=== PATIENT | male | born 1980 | race Caucasian/White ===

== ENCOUNTER 2017-03-21 18:01 | Observation (INO) | payer OTHER ==
[~2017-03-21] VITALS: Ht 177.8 cm; Wt 90.0 kg
[~2017-03-21 18:01] MED LIST: PRIL20CA PO
[2017-03-21] MEDS ORDERED: IOHEXOL 350 MG/ML 10 ML VIAL (for RAD DIAG) IVCONTRAST ONE (18:02)
[2017-03-21 18:03] VITALS: BP 174/96; PULSE 104; RESP 12; TEMP 98.6; O2SAT 99
[2017-03-21] MEDS ORDERED: PRIL20TA2 (18:15)
[2017-03-21] MEDS ORDERED: SODIUM CHLOR 0.9% 1000 ML INJ 1,000 ML IV SCH (18:16)
--- NOTE | 2017-03-21 18:28 | PD ---
HPI Chief Complaint: Abdominal Pain Time Seen by Provider: 18:10 Travel History International Travel<30 days: No Contact w/Intl Traveler<30days: No Traveled to known affect area: No History of Present Illness HPI 36 year old male presents to the emergency department for evaluation of right lower quadrant pain that started approximately 5 hours ago. He also vomited 1. Patient reports history of AR, spontaneous coronary dissection, GERD. He is currently on omeprazole. Patient denies any fevers or chills. No chest pain or shortness of breath. He denies any previous abdominal surgeries. Patient denies any diarrhea or constipation. No blood in the stool. [facility] Social History Alcohol Use: Yes (3 X/WEEK) Tobacco Use: No Substance Use: No Allergies-Medications (Allergen,Severity, Reaction): Coded Allergies: meperidine (Verified Allergy, Severe, Hives, 03/21/17) Reported Meds & Prescriptions Reported Meds & Active Scripts Active Reported Prilosec (Omeprazole Magnesium) 20 Mg Tab 40 Review of Systems Except as stated in HPI: all other systems reviewed are Neg Physical Exam Narrative GENERAL: Well-nourished, well-developed male patient, ambulatory. Afebrile. SKIN: Focused skin assessment warm/dry. HEAD: Normocephalic. Atraumatic. EYES: No scleral icterus. No injection or drainage. NECK: Supple, trachea midline. No JVD or lymphadenopathy. CARDIOVASCULAR: Regular rate and rhythm without murmurs, gallops, or rubs. RESPIRATORY: Breath sounds equal bilaterally. No accessory muscle use. Lungs sounds are clear to auscultation GASTROINTESTINAL: Abdomen soft and nondistended. He has tenderness over McBurney's point and has a positive Rovsing sign. MUSCULOSKELETAL: No cyanosis, or edema. BACK: Nontender without obvious deformity. No CVA tenderness. Data Data Last Documented VS Vital Signs Date Time Temp Pulse Resp B/P (MAP) Pulse Ox O2 Delivery O2 Flow Rate FiO2 03/21/17 22:17 78 19 140/63 (88) 94 Room Air 03/21/17 18:03 98.6 Orders Orders Complete Blood Count With Diff (03/21/17 18:16) Comprehensive Metabolic Panel (03/21/17 18:16) Lipase (03/21/17 18:16) Prothrombin Time / Inr (Pt) (03/21/17 18:16) Act Partial Throm Time (Ptt) (03/21/17 18:16) Urinalysis - C+S If Indicated (03/21/17 18:16) Ct Abd/Pel W Iv Contrast(Rout) (03/21/17 18:16) Iv Access Insert/Monitor (03/21/17 18:16) Ecg Monitoring (03/21/17 18:16) Oximetry (03/21/17 18:16) Morphine Inj (Morphine Inj) (03/21/17 18:30) Ondansetron Inj (Zofran Inj) (03/21/17 18:30) Sodium Chlor 0.9% 1000 Ml Inj (Ns 1000 M (03/21/17 18:16) Sodium Chloride 0.9% Flush (Ns Flush) (03/21/17 18:30) Iohexol 350 Inj (Omnipaque 350 Inj) (03/21/17 18:02) Labs Laboratory Tests Test 03/21/17 18:00 03/21/17 18:20 03/21/17 20:00 White Blood Count 15.6 TH/MM3 Red Blood Count 5.41 MIL/MM3 Hemoglobin 16.6 GM/DL Hematocrit 49.3 % Mean Corpuscular Volume 91.2 FL Mean Corpuscular Hemoglobin 30.7 PG Mean Corpuscular Hemoglobin Concent 33.6 % Red Cell Distribution Width 13.2 % Platelet Count 272 TH/MM3 Mean Platelet Volume 8.4 FL Neutrophils (%) (Auto) 78.8 % Lymphocytes (%) (Auto) 10.9 % Monocytes (%) (Auto) 8.9 % Eosinophils (%) (Auto) 0.7 % Basophils (%) (Auto) 0.7 % Neutrophils # (Auto) 12.3 TH/MM3 Lymphocytes # (Auto) 1.7 TH/MM3 Monocytes # (Auto) 1.4 TH/MM3 Eosinophils # (Auto) 0.1 TH/MM3 Basophils # (Auto) 0.1 TH/MM3 CBC Comment DIFF FINAL Differential Comment Prothrombin Time 10.4 SEC Prothromb Time International Ratio 0.9 RATIO Activated Partial Thromboplast Time 38.4 SEC Blood Urea Nitrogen 18 MG/DL Creatinine 1.17 MG/DL Random Glucose 101 MG/DL Total Protein 8.2 GM/DL Albumin 4.3 GM/DL Calcium Level 9.4 MG/DL Alkaline Phosphatase 82 U/L Aspartate Amino Transf (AST/SGOT) 37 U/L Alanine Aminotransferase (ALT/SGPT) 71 U/L Total Bilirubin 0.5 MG/DL Sodium Level 138 MEQ/L Potassium Level 4.1 MEQ/L Chloride Level 102 MEQ/L Carbon Dioxide Level 25.9 MEQ/L Anion Gap 10 MEQ/L Estimat Glomerular Filtration Rate 71 ML/MIN Lipase 208 U/L Urine Color YELLOW Urine Turbidity CLEAR Urine pH 5.5 Urine Specific [place] 1.020 Urine Protein NEG mg/dL Urine Glucose (UA) NEG mg/dL Urine Ketones NEG mg/dL Urine Occult Blood NEG Urine Nitrite NEG Urine Bilirubin NEG Urine Urobilinogen LESS THAN 2.0 MG/DL Urine Leukocyte Esterase NEG Urine RBC 1 /hpf Urine WBC 1 /hpf Microscopic Urinalysis Comment CULT NOT INDICATED MDM Medical Decision Making Medical Screen Exam Complete: Yes Emergency Medical Condition: Yes Medical Record Reviewed: Yes Interpretation(s) Last Impressions Abdomen/Pelvis CT 03/21/17 1816 Signed Impressions: Service Date/Time: Sunday, March 21, 2017 20:58 - CONCLUSION: 1. Very minimal induration of the fat at the peritoneal reflection in the right lower quadrant. This appears slightly superior to the appendix. The appendix does not appear thickened. Induration may be secondary to mild inflammation without significant thickening of the appendix. This can be correlated clinically with any signs of subtle mild appendicitis. 2. Hepatic steatosis. William Blanco MD Differential Diagnosis Appendicitis versus diverticulitis versus mesenteric adenitis versus pancreatitis Narrative Course 36-year-old male presents to the emergency department for evaluation of right lower quadrant abdominal pain that started 5 hours ago. He has tenderness over McBurney's point and a positive Rovsing sign. CBC, CMP, lipase, PTT, PT/INR, UA are ordered and pending. CT abdomen/pelvis with IV contrast is ordered and pending. CBC shows leukocytosis 15.6. CMP is unremarkable. Lipase is 208. Coags show no acute abnormality. UA is negative. CT abdomen/pelvis shows very minimal induration of the fat at the peritoneal reflection in the right lower quadrant. This appears slightly superior to the appendix. The appendix does not appear thickened. Induration may be secondary to mild inflammation without significant thickening of the appendix. This can be correlated clinically with any signs of subtle mild appendicitis; 2. Hepatic steatosis. Patient states he last ate around 1 PM today. He also had a glass of water around 4 PM. I talked to Dr. Lynch, surgeon, who will review the CT scan and see the patient. My attending physician, Dr. Russo, will resume care and disposition of patient. Neela Ortiz Mar 21, 2017 18:28
[2017-03-21] MEDS ORDERED: MORPHINE SULFATE 4 MG/ML INJ IV PUSH ONE (18:30)
[2017-03-21] MEDS ORDERED: ONDANSETRON HCL 4 MG/2 ML VIAL IVP ONE (18:30)
[2017-03-21] MEDS ORDERED: SODIUM CHLORIDE 0.9% FLUSH 10 ML FLUSH IV FLUSH PRN (18:30)
[2017-03-21 18:32] VITALS: O2SAT 99
[2017-03-21 18:48] LABS: AUTOMATED NEUTROPHIL # 12.3 TH/MM3 (1.8-7.7); BASOPHIL # 0.1 TH/MM3 (0-0.2); BASOPHIL % 0.7 % (0.0-2.0); EOSINOPHIL # 0.1 TH/MM3 (0-0.4); EOSINOPHIL % 0.7 % (0.0-4.0); HEMATOCRIT 49.3 % (39.0-51.0); HEMO FLAGS DIFF FINAL; LYMPH % 10.9 % (9.0-44.0); LYMPHOCYTE # 1.7 TH/MM3 (1.0-4.8); MEAN CELL VOLUME 91.2 FL (80.0-100.0); MEAN CORPUSCULAR HEMOGLOBIN 30.7 PG (27.0-34.0); MEAN CORPUSCULAR HGB CONC 33.6 % (32.0-36.0); MONO % 8.9 % (0.0-8.0); NEUT % 78.8 % (16.0-70.0); PLATELET COUNT 272 TH/MM3 (150-450); RED BLOOD COUNT 5.41 MIL/MM3 (4.50-5.90); RED CELL DISTRIBUTION WIDTH 13.2 % (11.6-17.2); WHITE BLOOD COUNT 15.6 TH/MM3 (4.0-11.0)
[2017-03-21 18:59] LABS: APTT (PATIENT) 38.4 SEC (24.3-30.1); INTERNATIONAL NORMALIZED RATIO 0.9 RATIO; PROTHROMBIN TIME - PATIENT 10.4 SEC (9.8-11.6)
[2017-03-21 19:05] LABS: ALT (GPT) 71 U/L (12-78)
[2017-03-21 19:08] LABS: ALKALINE PHOSPHATASE 82 U/L (45-117); TOTAL BILIRUBIN ADULT 0.5 MG/DL (0.2-1.0)
[2017-03-21 19:19] LABS: ANION GAP 10 MEQ/L (5-15); AST (GOT) 37 U/L (15-37); BICARBONATE 25.9 MEQ/L (21.0-32.0); BLOOD UREA NITROGEN 18 MG/DL (7-18); CHLORIDE 102 MEQ/L (98-107); GLOMERULAR FILTRATION RATE 71 ML/MIN (>89); POTASSIUM 4.1 MEQ/L (3.5-5.1); SODIUM (NA) 138 MEQ/L (136-145)
--- NOTE | 2017-03-21 20:07 | PD ---
Physical Exam Narrative I, Dr. Russo, have reviewed the advance practice practitioner's documentation and am in agreement, met with the patient face to face, made the diagnosis, and the medical decision making was done by me. *My assessment and Findings: Acute appendicitis vs. nephrolithiasis vs. cystitis vs. colitis 36yo M with PMH of [place], GERD, here with right lower abdominal pain that started around 1pm today. Associated with some nausea and one episode of NBNB vomiting. Pain is pressure and sharp, mainly in right lower quadrant and at times go to suprapubic. Denies any fever, chest pain, sob, dysuria, hematuria, testicular pain. Pt given morphine and zofran and pain has improved. Labs reviewed, leukocytosis at 15.6. CMP unremarkable. Lipase normal. Prolonged PTT. UA negative. CTa/p showed minimal induration superior to the appendix, appendix is not thickened but this can be correlated clinically with any signs of subtle mild appendicitis. Clinically, pt's pain is localized in right lower abdomen concerning for appendicitis so Dr. Lynch from general surgery was called. He evaluated the patient in the ED and recommended NPO after midnight and admit to medicine for observation. Discussed with [facility] hospitalist Dr. Pierre and accepted to Dr. De Santiago's service. Zosyn was cancelled because Dr. Lynch did not want any antibiotics. Data Data Last Documented VS Vital Signs Date Time Temp Pulse Resp B/P (MAP) Pulse Ox O2 Delivery O2 Flow Rate FiO2 03/21/17 22:17 78 19 140/63 (88) 94 Room Air 03/21/17 18:03 98.6 Orders Orders Complete Blood Count With Diff (03/21/17 18:16) Comprehensive Metabolic Panel (03/21/17 18:16) Lipase (03/21/17 18:16) Prothrombin Time / Inr (Pt) (03/21/17 18:16) Act Partial Throm Time (Ptt) (03/21/17 18:16) Urinalysis - C+S If Indicated (03/21/17 18:16) Ct Abd/Pel W Iv Contrast(Rout) (03/21/17 18:16) Iv Access Insert/Monitor (03/21/17 18:16) Ecg Monitoring (03/21/17 18:16) Oximetry (03/21/17 18:16) Morphine Inj (Morphine Inj) (03/21/17 18:30) Ondansetron Inj (Zofran Inj) (03/21/17 18:30) Sodium Chlor 0.9% 1000 Ml Inj (Ns 1000 M (03/21/17 18:16) Sodium Chloride 0.9% Flush (Ns Flush) (03/21/17 18:30) Iohexol 350 Inj (Omnipaque 350 Inj) (03/21/17 18:02) Piperacil-Tazo 3.375 Gm Premix (Zosyn 3. (03/21/17 23:15) Consult General Surgery (03/21/17 ) Admit Order (Ed Use Only) (03/21/17 23:10) Labs Laboratory Tests Test 03/21/17 18:00 03/21/17 18:20 03/21/17 20:00 White Blood Count 15.6 TH/MM3 Red Blood Count 5.41 MIL/MM3 Hemoglobin 16.6 GM/DL Hematocrit 49.3 % Mean Corpuscular Volume 91.2 FL Mean Corpuscular Hemoglobin 30.7 PG Mean Corpuscular Hemoglobin Concent 33.6 % Red Cell Distribution Width 13.2 % Platelet Count 272 TH/MM3 Mean Platelet Volume 8.4 FL Neutrophils (%) (Auto) 78.8 % Lymphocytes (%) (Auto) 10.9 % Monocytes (%) (Auto) 8.9 % Eosinophils (%) (Auto) 0.7 % Basophils (%) (Auto) 0.7 % Neutrophils # (Auto) 12.3 TH/MM3 Lymphocytes # (Auto) 1.7 TH/MM3 Monocytes # (Auto) 1.4 TH/MM3 Eosinophils # (Auto) 0.1 TH/MM3 Basophils # (Auto) 0.1 TH/MM3 CBC Comment DIFF FINAL Differential Comment Prothrombin Time 10.4 SEC Prothromb Time International Ratio 0.9 RATIO Activated Partial Thromboplast Time 38.4 SEC Blood Urea Nitrogen 18 MG/DL Creatinine 1.17 MG/DL Random Glucose 101 MG/DL Total Protein 8.2 GM/DL Albumin 4.3 GM/DL Calcium Level 9.4 MG/DL Alkaline Phosphatase 82 U/L Aspartate Amino Transf (AST/SGOT) 37 U/L Alanine Aminotransferase (ALT/SGPT) 71 U/L Total Bilirubin 0.5 MG/DL Sodium Level 138 MEQ/L Potassium Level 4.1 MEQ/L Chloride Level 102 MEQ/L Carbon Dioxide Level 25.9 MEQ/L Anion Gap 10 MEQ/L Estimat Glomerular Filtration Rate 71 ML/MIN Lipase 208 U/L Urine Color YELLOW Urine Turbidity CLEAR Urine pH 5.5 Urine Specific [place] 1.020 Urine Protein NEG mg/dL Urine Glucose (UA) NEG mg/dL Urine Ketones NEG mg/dL Urine Occult Blood NEG Urine Nitrite NEG Urine Bilirubin NEG Urine Urobilinogen LESS THAN 2.0 MG/DL Urine Leukocyte Esterase NEG Urine RBC 1 /hpf Urine WBC 1 /hpf Microscopic Urinalysis Comment CULT NOT INDICATED MDM Supervised Visit with JERAD: Yes Diagnosis Primary Impression: Appendicitis Qualified Codes: K35.89 - Other acute appendicitis Admitting Information Admitting Physician Requests: Kecia Bautista DO Mar 21, 2017 20:07
[2017-03-21 20:27] LABS: BLOOD, URINE NEG (NEG); GLUCOSE,URINE NEG (NEG); KETONE, URINE NEG (NEG); NITRITE,URINE NEG (NEG); PH, URINE 5.5 (5.0-8.5); URINE COLOR YELLOW (YELLW/STRAW)
[2017-03-21 20:31] LABS: COMMENT (UR) CULT NOT INDICATED; CULTURE IF INDICATED CULT NOT INDICATED
--- NOTE | 2017-03-21 21:46 | RADRPT ---
EXAM DATE/TIME: 03/21/2017 20:58 [facility] COMPARISON: CT ABDOMEN & PELVIS W CONTRAST, January 15, 2011, 19:14. INDICATIONS : Right lower qaudrant pain past 5 days. IV CONTRAST: 80 cc Omnipaque 350 (iohexol) IV ORAL CONTRAST: No oral contrast ingested. RADIATION DOSE: 21.99 CTDIvol (mGy) ; Patient body habitus MEDICAL HISTORY : None SURGICAL HISTORY : None. ENCOUNTER: Initial ACUITY: 4 - 6 days PAIN SCALE: 6/10 LOCATION: Right lower quadrant TECHNIQUE: Volumetric scanning of the abdomen and pelvis was performed. Using automated exposure control and ad justment of the mA and/or kV according to patient size, radiation dose was kept as low as reasonably achievable to obtain optimal diagnostic quality images. DICOM format image data is available electro nically for review and comparison. FINDINGS: LOWER LUNGS: There is minimal suspected atelectasis at the posterior medial lung bases. LIVER: There is diffuse decreased attenuation to the liver without lesion. There is no dilation of the bili [place] tree. No calcified gallstones. SPLEEN: Normal size without lesion. PANCREAS: Within normal limits. KIDNEYS: Normal in size and shape. There is no mass, stone or hydronephrosis. ADRENAL GLANDS: Within normal limits. VASCULAR: There is no aortic aneurysm. BOWEL/MESENTERY: The stomach, small bowel, and colon demonstrate no acute abnormality. There is no free intraperitone al air or fluid. The appendix appears normal in size. There some very minimal induration of the fat s een at the peritoneal reflection in the posterior right lower quadrant superior to the appendix. This is nonspecific. Fairly minimal. There are mildly prominent lymph nodes in the right lower quadrant. These were present previously and appear unchanged. ABDOMINAL WALL: Within normal limits. RETROPERITONEUM: There is no lymphadenopathy. BLADDER: No wall thickening or mass. REPRODUCTIVE: Within normal limits. INGUINAL: There is no lymphadenopathy or hernia. MUSCULOSKELETAL: Within normal limits for patient age. CONCLUSION: 1. Very minimal induration of the fat at the peritoneal reflection in the right lower quadrant. This appears slightly superior to the appendix. The appendix does not appear thickened. Induration may be secondary to mild inflammation without significant thickening of the appendix. This can be correlated clinically with any signs of subtle mild appendicitis. 2. Hepatic steatosis. William Blanco MD on March 21, 2017 at 21:37 Board Certified Radiologist. This report was verified electronically.
[2017-03-21 22:17] VITALS: BP 140/63; PULSE 78; RESP 19; O2SAT 94
[2017-03-21] MEDS ORDERED: PIPERACIL-TAZO 3.375 GM PREMIX 50 ML IV ONE (23:15)
[2017-03-22] MEDS ORDERED: SODIUM CHLORIDE 0.9% FLUSH 10 ML FLUSH IV FLUSH PRN (00:15)
[2017-03-22] MEDS ORDERED: ONDANSETRON HCL 4 MG/2 ML VIAL IVP PRN (00:15)
[2017-03-22] MEDS ORDERED: SENNOSIDES 8.6 MG TAB PO PRN (00:15)
[2017-03-22] MEDS ORDERED: MORPHINE SULFATE 4 MG/ML INJ IV PRN ×2 (00:15)
[2017-03-22] MEDS ORDERED: NALOXONE HCL 0.4 MG/ML AMP IV PRN (00:15)
[2017-03-22] MEDS ORDERED: ZOLPIDEM TARTRATE 5 MG TAB PO PRN (00:15)
[2017-03-22] MEDS ORDERED: MAGNESIUM HYDROXIDE SUSP 30 ML CUP PO PRN (00:15)
[2017-03-22] MEDS ORDERED: ACETAMINOPHEN 325 MG TAB PO PRN (00:15)
[2017-03-22] MEDS: SODIUM CHLOR 0.9% 1000 ML INJ 1,000 ML IV SCH ×2 (00:45→10:12)
[2017-03-22 01:13] VITALS: BP 144/67
[2017-03-22 01:53] VITALS: BP 120/78; PULSE 70; RESP 18; TEMP 98.2; O2SAT 95
[2017-03-22 08:07] VITALS: BP 131/80; PULSE 74; RESP 16; TEMP 98.1; O2SAT 97
--- NOTE | 2017-03-22 08:22 | MB ---
cc: IVONNE HUANG MD DATE OF CONSULTATION: 03/21/2017 CHIEF COMPLAINT Right lower quadrant abdominal pain. HISTORY OF PRESENT ILLNESS The patient is a 36-year-old male with history of MD and reflux, presents with acute onset of right lower quadrant abdominal pain. He stated the pain started around 01:00 p.m. and continued to get worse. He had an episode of nausea and one episode of vomiting. He states the pain is sharp, located in the right lower quadrant and no radiation, better with lying still, worse with movement. He also had some improvement with IV pain medication. He came to the emergency department, further evaluation including laboratory values showing a WBC of 15.6, CT scan of the abdomen and pelvis showed small induration superior to the appendix. Appendix was not significantly dilated or inflamed. Surgery was consulted for further evaluation. On my exam the patient is resting a little more comfortably. He confirms the above and states his pain is approximately currently 3 out of 10 and better after getting IV pain medication. He states he did in 2010 have some similar right lower quadrant pain with a diagnosis of mesenteric adenitis and discharged home at that time. PAST MEDICAL HISTORY MD and reflux disease. PAST SURGICAL HISTORY Hand surgery. SOCIAL HISTORY Occasional ETOH three times per week. Occasional smoking. Denies IVDA. ALLERGIES MEPERIDINE. MEDICATIONS See EMR. FAMILY HISTORY Denies hypertension or diabetes. REVIEW OF SYSTEMS GENERAL: Denies fevers or chills. HEENT: Denies eye pain, ear pain. LUNGS: Denies cough or wheeze. HEART: Denies chest pain or palpitation. History of MD. ABDOMEN: Complaint of nausea, vomiting, abdominal pain. : Denies dysuria, hematuria. ENDOCRINE: Denies polyuria, polydipsia. PSYCHE: Denies change in mood or sensorium. NEUROLOGIC: Denies numbness or tingling. PHYSICAL EXAMINATION GENERAL: The patient is in no acute distress. VITAL SIGNS: Temperature 98.6, pulse 78, respirations 19, blood pressure 140/63, saturation 94%. HEENT: Normocephalic, atraumatic. Pupils equal, round, reactive. NECK: Supple. Trachea midline. LUNGS: Clear to auscultation bilaterally. HEART: S1-S2, regular. ABDOMEN: Soft, positive tenderness to palpation, deep palpation right lower quadrant. No rebound. EXTREMITIES: Warm, well-perfused. NEUROLOGIC: GCS 15, 5/5 motor in all extremities. INTEGUMENT: No obvious masses or lesions. LABORATORY DIAGNOSTIC DATA WBC 15.6, hemoglobin 16.6, hematocrit 49.3, platelets 272, sodium 138, potassium 4.1, chloride 102, BUN 18, creatinine 1.1, AST 37, ALT 71, lipase 208, INR 0.9. CT reviewed by myself showing some minimal induration of fat right lower quadrant. Appendix does not appear to be thickened or dilated. ASSESSMENT The patient with right lower quadrant abdominal pain, rule out appendicitis. PLAN After full clinical radiological laboratory workup, the patient with above-named issues. He does have leukocytosis and some mild right lower quadrant pain. Discussed with the patient in detail regarding possible observation, minimal pain medication, no antibiotics. We will recheck labs in the morning. If the patient's white count continues to decrease, his pain becomes significantly worse, then I would entertain a stronger suspicion of appendicitis. However, if his pain is mild and starts to improve and his white count is improving as well, appendicitis would be less likely. Will again keep close eye on the patient with abdominal exams and close observation for now. Consider laparoscopic appendectomy again if persistent concern for appendicitis is felt. MD YANELI Verdugo/MARK /11:48 PM /7:58 AM
[2017-03-22 08:30] LABS: AUTOMATED NEUTROPHIL # 5.9 TH/MM3 (1.8-7.7); BASOPHIL # 0.1 TH/MM3 (0-0.2); EOSINOPHIL # 0.2 TH/MM3 (0-0.4); EOSINOPHIL % 2.2 % (0.0-4.0); HEMATOCRIT 46.5 % (39.0-51.0); HEMO FLAGS DIFF FINAL; LYMPH % 20.1 % (9.0-44.0); LYMPHOCYTE # 1.9 TH/MM3 (1.0-4.8); MEAN CELL VOLUME 93.4 FL (80.0-100.0); MEAN CORPUSCULAR HEMOGLOBIN 31.9 PG (27.0-34.0); MEAN CORPUSCULAR HGB CONC 34.1 % (32.0-36.0); MONO % 12.5 % (0.0-8.0); NEUT % 64.2 % (16.0-70.0); PLATELET COUNT 225 TH/MM3 (150-450); RED BLOOD COUNT 4.98 MIL/MM3 (4.50-5.90); RED CELL DISTRIBUTION WIDTH 13.5 % (11.6-17.2); WHITE BLOOD COUNT 9.2 TH/MM3 (4.0-11.0)
[2017-03-22 08:51] LABS: BICARBONATE 27.5 MEQ/L (21.0-32.0); POTASSIUM 3.8 MEQ/L (3.5-5.1)
[2017-03-22] MEDS ORDERED: SODIUM CHLORIDE 0.9% FLUSH 10 ML FLUSH IV FLUSH SCH (09:00)
--- NOTE | 2017-03-22 09:00 | HHI.HP ---
[facility] Jose Mcpherson M.D. Admission Diagnosis Acute appendicitis Diagnoses: Chief Complaint: abdomen pain Travel History International Travel<30 Days: No Contact w/Intl Traveler <30 Da: No Traveled to Known Affected Are: No History of Present Illness This is a 36-year-old white male who is generally healthy, past medical history of GERD. Presented to the emergency room with complaint of right lower quadrant pain that started yesterday around 1 PM. Indicates he ate some fish tacos for lunch and an hour after that he started to develop pain that was sharp radiating across to umbilicus and down to the groin. He tried to vomit to see if the symptoms improve but there was no relief. Initially thought he was having food poisoning symptoms. He denies any fever, no chills, no diarrhea. Patient indicates he had similar symptoms back in 2010, he was evaluated. At that time no surgery was indicated. Patient was evaluated in emergency room, laboratory workup was completed. CBC remarkable for leukocytosis, WBC 15.6. No bandemia. BMP was remarkable for the mild dehydration. Urinalysis did not show any infection. CT of the abdomen showed very minimal induration of the fat at the peritoneal reflection in the right lower quadrant, this appears slightlyn superior to the appendix. The appendix is not appear thickened. Induration may be secondary to mild inflammation without significant thickening of the appendix. This can be correlated clinically with any signs of subtle mild appendicitis. Hepatic steatosis. Surgery was called from the emergency room, emergency room physician spoke to Dr. Lynch and he will be reviewing CT scan. At this time, patient indicates that the right lower abdomen pain has improved, minimal pain. No nausea, no vomiting. Denies any recent fever, no chills. Patient indicates he had a similar presentation in 2010, was evaluated. At that time no surgery was not indicated as his symptoms did improve. Patient is admitted for further evaluation and treatment. Review of Systems Constitutional: DENIES: Diaphoretic episodes, Fatigue, Fever, Weight gain, Weight loss, Chills, Dizziness, Change in appetite, Night Sweats Endocrine: DENIES: Heat/cold intolerance, Polydipsia, Polyuria, Polyphagia Eyes: DENIES: Blurred vision, Diplopia, Eye inflammation, Eye pain, Vision loss , Photosensitivity, Double Vision Ears, nose, mouth, throat: DENIES: Tinnitus, Hearing loss, Vertigo, Nasal discharge, Oral lesions, Throat pain, Hoarseness, Ear Pain, Running Nose, Epistaxis, Sinus Pain, Toothache, Odynophagia Respiratory: DENIES: Apneas, Cough, Snoring, Wheezing, Hemoptysis, Sputum production, Shortness of breath Cardiovascular: DENIES: Chest pain, Palpitations, Syncope, Dyspnea on Exertion , PND, Lower Extremity Edema, Orthopnea, Claudication Gastrointestinal: COMPLAINS OF: Abdominal pain, Nausea, Vomiting, DENIES: Black stools, Bloody stools, Constipation, Diarrhea, Difficulty Swallowing, Anorexia Genitourinary: DENIES: Sexual dysfunction, Urinary frequency, Urinary incontinence, Urgency, Hematuria, Dysuria, Nocturia, Penile Discharge, Testicular Pain, Testicular Swelling Musculoskeletal: DENIES: Joint pain, Muscle aches, Stiffness, Joint Swelling, Back pain, Neck pain Integumentary: DENIES: Abnormal pigmentation, Nail changes, Pruritus, Rash Hematologic/lymphatic: DENIES: Bruising, Lymphadenopathy Immunologic/allergic: DENIES: Eczema, Urticaria Neurologic: DENIES: Abnormal gait, Headache, Localized weakness, Paresthesias, Seizures, Speech Problems, Tremor, Poor Balance Psychiatric: DENIES: Anxiety, Confusion, Mood changes, Depression, Hallucinations, Agitation, Suicidal Ideation, Homicidal Ideation, Delusions Past Family Social History Past Medical History GERD Dissected coronary artery, 4 years ago. Had a cardiac catheter that was normal. Followed up with Dr. Agrawal who evaluated did follow up echo and was found stable, no intervention. Previous ER visit for abdominal pain, thought to be appendicitis, symptoms improve, no surgery done. Past Surgical History Left hand surgery Reported Medications Reported Meds & Active Scripts Active Reported Prilosec (Omeprazole Magnesium) 20 Mg Tab 40 Allergies: Coded Allergies: meperidine (Verified Allergy, Severe, Hives, 03/21/17) Active Ordered Medications Inpatient Medications Acetaminophen (Tylenol) 650 mg Q4H PRN PO TEMP > 100.4; Start 03/22/17 at 00:15 Magnesium Hydroxide (Milk Of Magnesia Liq) 30 ml Q12H PRN PO MILD - MODERATE CONSTIPATION; Start 03/22/17 at 00:15 Morphine Sulfate (Morphine Inj) 4 mg Q3H PRN IV Pain 6-10;if unable to take PO ; Start 03/22/17 at 00:15 Naloxone HCl (Narcan Inj) 0.4 mg UNSCH PRN IV SEE LABEL COMMENTS; Start at 00:15 Ondansetron HCl (Zofran Inj) 4 mg Q6H PRN IVP NAUSEA OR VOMITING; Start at 00:15 Piperacillin Sod/ Tazobactam Sod 50 ml @ 100 mls/hr ONCE ONCE IV ; Start 03/21 at 23:15; Stop 03/21/17 at 23:29; Status DC Sennosides (Senokot) 17.2 mg Q12H PRN PO MODERATE - SEVERE CONSTIPATION; Start 03/22/17 at 00:15 Sodium Chloride (NS Flush) 2 ml BID IV FLUSH ; Start 03/22/17 at 09:00 Zolpidem Tartrate (Ambien) 5 mg HS PRN PO INSOMNIA; Start 03/22/17 at 00:15 Family History Mother is alive and well Father , from mesothelioma Social History Patient is , has children. Drinks alcohol 3 days a week, usually beer and vodka. No illegal drug use, occasional smoking. Works in construction. Physical Exam Vital Signs Vital Signs Date Time Temp Pulse Resp B/P (MAP) Pulse Ox O2 Delivery O2 Flow Rate FiO2 03/22/17 08:07 98.1 74 16 131/80 (97) 97 03/22/17 01:53 98.2 70 18 120/78 (92) 95 03/22/17 01:13 75 16 144/67 (92) 97 03/21/17 22:17 78 19 140/63 (88) 94 Room Air 03/21/17 19:39 18 03/21/17 18:32 99 03/21/17 18:03 98.6 104 12 174/96 (122) 99 Physical Exam GENERAL: This is a well-nourished, well-developed patient, in no apparent distress. SKIN: No rashes, ecchymoses or lesions. Cool and dry. HEAD: Atraumatic. Normocephalic. No temporal or scalp tenderness. EYES: Pupils equal round and reactive. Extraocular motions intact. No scleral icterus. No injection or drainage. ENT: Nose without bleeding, purulent drainage or septal hematoma. Throat without erythema, tonsillar hypertrophy or exudate. Uvula midline. Airway patent. NECK: Trachea midline. No JVD or lymphadenopathy. Supple, nontender, no meningeal signs. CARDIOVASCULAR: Regular rate and rhythm without murmurs, gallops, or rubs. RESPIRATORY: Clear to auscultation. Breath sounds equal bilaterally. No wheezes , rales, or rhonchi. GASTROINTESTINAL: Abdomen soft, mildly tender to palpation to right lower quadrant. nondistended. No hepato-splenomegaly, or palpable masses. No guarding. MUSCULOSKELETAL: Extremities without clubbing, cyanosis, or edema. No joint tenderness, effusion, or edema noted. No calf tenderness. Negative Homans sign bilaterally. NEUROLOGICAL: Awake and alert. Cranial nerves II through XII intact. Motor and sensory grossly within normal limits. Five out of 5 muscle strength in all muscle groups. Normal speech. Laboratory Laboratory Tests Test 03/21/17 18:00 03/21/17 18:20 03/21/17 20:00 03/22/17 07:10 White Blood Count 15.6 9.2 Red Blood Count 5.41 4.98 Hemoglobin 16.6 15.9 Hematocrit 49.3 46.5 Mean Corpuscular Volume 91.2 93.4 Mean Corpuscular Hemoglobin 30.7 31.9 Mean Corpuscular Hemoglobin Concent 33.6 34.1 Red Cell Distribution Width 13.2 13.5 Platelet Count 272 225 Mean Platelet Volume 8.4 9.1 Neutrophils (%) (Auto) 78.8 64.2 Lymphocytes (%) (Auto) 10.9 20.1 Monocytes (%) (Auto) 8.9 12.5 Eosinophils (%) (Auto) 0.7 2.2 Basophils (%) (Auto) 0.7 1.0 Neutrophils # (Auto) 12.3 5.9 Lymphocytes # (Auto) 1.7 1.9 Monocytes # (Auto) 1.4 1.2 Eosinophils # (Auto) 0.1 0.2 Basophils # (Auto) 0.1 0.1 CBC Comment DIFF FINAL DIFF FINAL Differential Comment Prothrombin Time 10.4 Prothromb Time International Ratio 0.9 Activated Partial Thromboplast Time 38.4 Blood Urea Nitrogen 18 Creatinine 1.17 Random Glucose 101 Total Protein 8.2 Albumin 4.3 Calcium Level 9.4 Alkaline Phosphatase 82 Aspartate Amino Transf (AST/SGOT) 37 Alanine Aminotransferase (ALT/SGPT) 71 Total Bilirubin 0.5 Sodium Level 138 Potassium Level 4.1 Chloride Level 102 Carbon Dioxide Level 25.9 Anion Gap 10 Estimat Glomerular Filtration Rate 71 Lipase 208 Urine Color YELLOW Urine Turbidity CLEAR Urine pH 5.5 Urine Specific [place] 1.020 Urine Protein NEG Urine Glucose (UA) NEG Urine Ketones NEG Urine Occult Blood NEG Urine Nitrite NEG Urine Bilirubin NEG Urine Urobilinogen LESS THAN 2.0 Urine Leukocyte Esterase NEG Urine RBC 1 Urine WBC 1 Microscopic Urinalysis Comment CULT NOT INDICATED Result Diagram: 03/22/17 0710 03/21/171819 Imaging Last Impressions Abdomen/Pelvis CT 03/21/171815 Signed Impressions: Service Date/Time: Tuesday, March 21, 2017 20:58 - CONCLUSION: 1. Very minimal induration of the fat at the peritoneal reflection in the right lower quadrant. This appears slightly superior to the appendix. The appendix does not appear thickened. Induration may be secondary to mild inflammation without significant thickening of the appendix. This can be correlated clinically with any signs of subtle mild appendicitis. 2. Hepatic steatosis. William Blanco MD Caprini VTE Risk Assessment Caprini VTE Risk Assessment: No/Low Risk (score <= 1) Caprini Risk Assessment Model Point Value = 1 Point Value = 2 Point Value = 3 Point Value = 5 Age 41-60 Minor surgery BMI > 25 kg/m2 Swollen legs Varicose veins or History of unexplained or recurrent spontaneous Oral contraceptives or hormone replacement Sepsis (< 1 month) Serious lung disease, including pneumonia (< 1 month) Abnormal pulmonary function Acute myocardial infarction Congestive heart failure (< 1 month) History of inflammatory bowel disease Medical patient at bed rest Age 61-74 Arthroscopic surgery Major open surgery (> 45 min) Laparoscopic surgery (> 45 min) Malignancy Confined to bed (> 72 hours) Immobilizing plaster cast Central venous access Age >= 75 History of VTE Family history of VTE Factor V Leiden Prothrombin [id number] Lupus anticoagulant Anticardiolipin antibodies Elevated serum homocysteine Heparin-induced thrombocytopenia Other congenital or acquired thrombophilia Stroke (< 1 month) Elective arthroplasty Hip, pelvis, or leg fracture Acute spinal cord injury (< 1 month) Prophylaxis Regimen Total Risk Factor Score Risk Level Prophylaxis Regimen 0-1 Low Early ambulation 2 Moderate Order ONE of the following: *Sequential Compression Device (SCD) *Heparin 5000 units SQ BID 3-4 Higher Order ONE of the following medications: *Heparin 5000 units SQ TID *Enoxaparin/Lovenox 40 mg SQ daily (WT < 150 kg, CrCl > 30 mL/min) *Enoxaparin/Lovenox 30 mg SQ daily (WT < 150 kg, CrCl > 10-29 mL/min) *Enoxaparin/Lovenox 30 mg SQ BID (WT < 150 kg, CrCl > 30 mL/min) AND/OR *Sequential Compression Device (SCD) 5 or more Highest Order ONE of the following medications: *Heparin 5000 units SQ TID (Preferred with Epidurals) *Enoxaparin/Lovenox 40 mg SQ daily (WT < 150 kg, CrCl > 30 mL/min) *Enoxaparin/Lovenox 30 mg SQ daily (WT < 150 kg, CrCl > 10-29 mL/min) *Enoxaparin/Lovenox 30 mg SQ BID (WT < 150 kg, CrCl > 30 mL/min) AND *Sequential Compression Device (SCD) Assessment and Plan Problem List: (1) Abdominal pain ICD Codes: R10.9 - Unspecified abdominal pain Status: Acute (2) GERD (gastroesophageal reflux disease) ICD Codes: K21.9 - Gastro-esophageal reflux disease without esophagitis Status: Chronic Assessment and Plan Admit to Dr. De Santiago 36-year-old male admitted with right lower abdomen pain, nausea vomiting. CT findings concerning for possible appendicitis. Right lower abdomen pain with leukocytosis. -Patient received antibiotics in the emergency room, we'll follow up on CBC. -Continue with IV fluids -Keep nothing by mouth -Dr. Lynch has been consulted for evaluation, case has been discussed with him. He will be reviewing CT findings and make further decisions. -WBC trending down -Continue with pain management -Symptoms appear to be resolving, we will wait for further recommendations from surgery GERD -Protonix for milligrams IV daily for GI prophylaxis Home medications reviewed, initiated as indicated SCDs for DVT prophylaxis. PPI for GI prophylaxis Plan of care has been discussed with the patient, attending and registered nurse. Further management of the patient will be dependent on the hospital course This patient was seen by myself and Dr. De Santiago, this H&P is written on his behalf Problem Qualifiers (1) Abdominal pain: Qualified Codes: R10.31 - Right lower quadrant pain (2) GERD (gastroesophageal reflux disease): Qualified Codes: K21.9 - Gastro-esophageal reflux disease without esophagitis Heather Mireles Mar 22, 2017 09:00
--- NOTE | 2017-03-22 09:01 | HHI.DCPOC ---
Discharge Care Plan Diagnosis: (1) Abdominal pain (2) GERD (gastroesophageal reflux disease) Your Health Problems Are: Irregular Bowel Function Goals to Promote Your Health * To prevent worsening of your condition and complications * To maintain your health at the optimal level Directions to Meet Your Goals Take your medications as prescribed Follow your dietary instruction Follow activity as directed Keep your appointments as scheduled Take your immunizations and boosters as scheduled If your symptoms worsen call your PCP, if no PCP go to Urgent Care Center or Emergency Room Smoking is Dangerous to Your Health. Avoid second hand smoke Call the 24-hour hour crisis hotline for domestic abuse at Heather Mireles Mar 22, 2017 09:01
--- NOTE | 2017-03-22 09:04 | HHI.PR ---
Subjective Subjective Notes no acute issues, wbc normal, no fevers, pain better Objective Vitals/I&O Vital Signs Date Time Temp Pulse Resp B/P (MAP) Pulse Ox O2 Delivery O2 Flow Rate FiO2 03/22/17 08:07 98.1 74 16 131/80 (97) 97 03/21/17 22:17 Room Air Labs Laboratory Tests Test 03/21/17 18:00 03/21/17 18:20 03/21/17 20:00 03/22/17 07:10 White Blood Count 15.6 9.2 Red Blood Count 5.41 4.98 Hemoglobin 16.6 15.9 Hematocrit 49.3 46.5 Mean Corpuscular Volume 91.2 93.4 Mean Corpuscular Hemoglobin 30.7 31.9 Mean Corpuscular Hemoglobin Concent 33.6 34.1 Red Cell Distribution Width 13.2 13.5 Platelet Count 272 225 Mean Platelet Volume 8.4 9.1 Neutrophils (%) (Auto) 78.8 64.2 Lymphocytes (%) (Auto) 10.9 20.1 Monocytes (%) (Auto) 8.9 12.5 Eosinophils (%) (Auto) 0.7 2.2 Basophils (%) (Auto) 0.7 1.0 Neutrophils # (Auto) 12.3 5.9 Lymphocytes # (Auto) 1.7 1.9 Monocytes # (Auto) 1.4 1.2 Eosinophils # (Auto) 0.1 0.2 Basophils # (Auto) 0.1 0.1 CBC Comment DIFF FINAL DIFF FINAL Differential Comment Prothrombin Time 10.4 Prothromb Time International Ratio 0.9 Activated Partial Thromboplast Time 38.4 Blood Urea Nitrogen 18 16 Creatinine 1.17 1.03 Random Glucose 101 101 Total Protein 8.2 Albumin 4.3 Calcium Level 9.4 8.9 Alkaline Phosphatase 82 Aspartate Amino Transf (AST/SGOT) 37 Alanine Aminotransferase (ALT/SGPT) 71 Total Bilirubin 0.5 Sodium Level 138 138 Potassium Level 4.1 3.8 Chloride Level 102 102 Carbon Dioxide Level 25.9 27.5 Anion Gap 10 9 Estimat Glomerular Filtration Rate 71 82 Lipase 208 Urine Color YELLOW Urine Turbidity CLEAR Urine pH 5.5 Urine Specific [place] 1.020 Urine Protein NEG Urine Glucose (UA) NEG Urine Ketones NEG Urine Occult Blood NEG Urine Nitrite NEG Urine Bilirubin NEG Urine Urobilinogen LESS THAN 2.0 Urine Leukocyte Esterase NEG Urine RBC 1 Urine WBC 1 Microscopic Urinalysis Comment CULT NOT INDICATED Cardiovascular: Regular Lungs: Clear Abdomen: Other (mild ttp deep palpation, no rebound) A/P Assessment and Plan abdominal pain rlq, better wbc normal PLAN low likely guillen for appendicitis reg diet d/c if tolerating po Baldemar Lynch MD Mar 22, 2017 09:04
[2017-03-22] MEDS ORDERED: ACETAMINOPHEN/HYDROcodone 325 MG/7.5 MG TAB PO PRN (09:45)
[2017-03-22] MEDS ORDERED: PANTOPRAZOLE SODIUM 40 MG VIAL IV PUSH SCH (10:00)
[2017-03-22 11:28] VITALS: BP 116/58; PULSE 87; RESP 16; TEMP 98.3; O2SAT 95
== END 2017-03-22 13:11 | disposition home or self-care (01) ==
LOC: NEPE 18:01 → NEDA 23:11 → NEPGCP 03-22 01:54
PROVIDERS: ADMIT Specialist; ATTEND Specialist
DX: R10.31 Right lower quadrant pain (principal); K21.9 Gastro-esophageal reflux disease without esophagitis; E86.0 Dehydration; I25.2 Old myocardial infarction
CPT/HCPCS: 74177; 80048; 80053; 81001; 83690; 85025; 85610; 85730; 96361; 96374; 96375; 99285; C9113; G0378; J2270; J2405; J7030; Q9967

== ENCOUNTER → 2017-05-03 | Outpatient (CLI) | payer OTHER ==
[~2017-05-03] MED LIST changes: -PRIL20CA PO; +PRIL20TA2
[2017-05-03 13:15] LABS: RHEUMATOID FACTOR TRIGGER LESS THAN 10.0 IU/ML (0.0-14.9)
== END ==
LOC: OLAB 07:56
PROVIDERS: ATTEND Podiatrist Foot & Ankle Surgery
DX: M06.9 Rheumatoid arthritis, unspecified (principal)
CPT/HCPCS: 84550; 85652; 86038; 86200; 86430